=== PATIENT | male | born 1960 | race Caucasian/White ===

== ENCOUNTER 2021-10-23 11:58 | Inpatient (IN) | payer OTHER ==
[~2021-10-23] VITALS: Ht 185.4 cm; Wt 61.0 kg
[2021-10-23 12:48] LABS: BASOPHILS ABSOLUTE AUTO 0.06 K/mm3 (0.00-0.23); BASOPHILS PERCENT AUTO 1 % (0-2); EOSINOPHILS ABSOLUTE AUTO 0.04 K/mm3 (0.00-0.68); EOSINOPHILS PERCENT AUTO 1 % (0-6); Hematocrit 40.6 % (37.0-53.0); Hemoglobin 14.1 g/dL (13.5-17.5); IMMATURE GRAN ABSOLUTE AUTO 0.03 K/mm3 (0.00-0.10); IMMATURE GRAN PERCENT AUTO 1 % (0-1); LYMPHOCYTES ABSOLUTE AUTO 1.59 K/mm3 (0.84-5.20); LYMPHOCYTES PERCENT AUTO 34 % (21-46); MONOCYTES ABSOLUTE AUTO 0.39 K/mm3 (0.16-1.47); MONOCYTES PERCENT AUTO 8 % (4-13); Mean Corpuscular HGB 29.8 pg (26.0-34.0); Mean Corpuscular HGB Conc 34.7 g/dL (31.5-36.5); Mean Corpuscular Volume 86 fL (80-100); Mean Platelet Volume 10.5 fL (9.1-12.4); NEUTROPHILS ABSOLUTE AUTO 2.61 K/mm3 (1.96-9.15); NEUTROPHILS PERCENT AUTO 55 % (41-73); Platelet Count 187 K/mm3 (150-400); RDW Coefficient Variation 12.5 % (11.7-14.2); Red Blood Cell Count 4.73 M/mm3 (4.30-5.90); White Blood Cell Count 4.72 K/mm3 (4.00-11.30)
[2021-10-23 12:55] LABS: Source, Urine Clean Catch
[2021-10-23 13:16] LABS: Albumin, Blood 3.3 g/dL (3.4-5.0); Albumin/Globulin Ratio 0.7 (0.8-1.8); Bilirubin, Total 0.4 mg/dL (0.1-1.0); Bun/Creatinine Ratio 32.4 (12.0-20.0); Calcium, Blood 9.3 mg/dL (8.5-10.1); Creatinine, Blood 0.62 mg/dL (0.60-1.20); Globulin, Blood 4.5 g/dL (2.2-4.0); Potassium, Blood 4.9 mmol/L (3.5-5.5); Total Protein, Blood 7.8 g/dL (6.4-8.2)
[2021-10-23 13:22] LABS: Appearance, Urine Clear (Clear); Bilirubin, Urine Neg (Neg); Blood, Urine Neg (Neg); Color, Urine Yellow (P-Yellow); Glucose Qualitative, Urine 4+ (Neg); Ketones, Urine 1+ (Neg); Leukocyte Esterase, Urine Neg (Neg); Nitrite, Urine Neg (Neg); Protein, Urine Neg (Neg); Urobilinogen, Urine NORM (Normal)
[2021-10-23 15:36] LABS: Ketones, Urine Neg (Neg)
[2021-10-23 15:50] LABS: Bicarbonate Venous 25.4 mmol/L (24.0-30.0); pH Blood Venous 7.34 (7.34-7.37)
[2021-10-23 18:42] LABS: Albumin, Blood 2.8 g/dL (3.4-5.0); Anion Gap 7 mmol/L (6-16); Blood Urea Nitrogen 15 mg/dL (8-24); Bun/Creatinine Ratio 30.2 (12.0-20.0); CO2, Blood 27 mmol/L (21-32); Calcium, Blood 8.8 mg/dL (8.5-10.1); Chloride, Blood 98 mmol/L (98-108); Glomerular Filtration Rate 115 (60-); Glucose, Blood 462 mg/dL (70-99); Phosphorus, Blood 2.9 mg/dL (2.5-4.9); Potassium, Blood 4.2 mmol/L (3.5-5.5); Sodium, Blood 132 mmol/L (136-145)
--- NOTE | 2021-10-23 19:25 | NUR ---
PATIENT ARRIVED TO UNIT AT 1855. PATIENT ABLE TO TRANSFER SELF TO BED WITHOUT TROUBLE. PATIENT ALERT AND ORIENTED X 4, AFEBRILE. NO COMPLAINTS OF PAIN. PATIENT SATTING 90% AND GREATER ON RA. URINALS AT BEDSIDE. NS INFUSING AT 200 MLS/ HOUR. BLOOD SUGAR DOWN OVER 100 IN ONE HOUR INTERVAL. INSULIN DRIP POSTPONED AND BLOOD SUGAR WILL BE CHECKED AGAIN IN ANOTHER HOUR DO NOT WANT TO DECREASE TOO RAPIDLY. PATIENT ORIENTED TO UNIT, ROOM AND CALL SYSTEM. NO COMPLAINTS AT THIS TIME. BED LOW, CALL LIGHT IN REACH. REPORT GIVEN TO ASSUMING LEGAL DOCUMENT SPECIALIST NURSE.
[2021-10-23 23:14] LABS: Albumin, Blood 2.8 g/dL (3.4-5.0); Anion Gap 11 mmol/L (6-16); Blood Urea Nitrogen 13 mg/dL (8-24); Bun/Creatinine Ratio 24.8 (12.0-20.0); CO2, Blood 24 mmol/L (21-32); Calcium, Blood 8.6 mg/dL (8.5-10.1); Chloride, Blood 102 mmol/L (98-108); Creatinine, Blood 0.52 mg/dL (0.60-1.20); Glomerular Filtration Rate 113 (60-); Glucose, Blood 338 mg/dL (70-99); Phosphorus, Blood 2.4 mg/dL (2.5-4.9); Potassium, Blood 3.7 mmol/L (3.5-5.5); Sodium, Blood 137 mmol/L (136-145)
[2021-10-24 03:06] LABS: Albumin, Blood 2.7 g/dL (3.4-5.0); Albumin/Globulin Ratio 0.7 (0.8-1.8); Bilirubin, Direct 0.2 mg/dL (0.0-0.3); Bilirubin, Indirect 0.1 mg/dL (0.1-0.7); Bilirubin, Total 0.3 mg/dL (0.1-1.0); Bun/Creatinine Ratio 20.6 (12.0-20.0); Calcium, Blood 8.5 mg/dL (8.5-10.1); Creatinine, Blood 0.53 mg/dL (0.60-1.20); Globulin, Blood 3.8 g/dL (2.2-4.0); Magnesium, Blood 1.9 mg/dL (1.6-2.4); Phosphorus, Blood 2.6 mg/dL (2.5-4.9); Potassium, Blood 3.4 mmol/L (3.5-5.5); Total Protein, Blood 6.5 g/dL (6.4-8.2)
--- NOTE | 2021-10-24 07:13 | NUR ---
SUMMARY. PT RESTED IN BED THROUGHOUT SHIFT. A&O, ON ROOM AIR. IV ACCESS IN L&R ARMS. INSULIN GTT STARTED FOR HHS/HIGH BG, MAINTENANCE D5 1/2NS W/KCL STARTED AFTER BG BELOW 250. ORDERS OBTAINED THIS AM TO TRANSITION TO ACHS BG CHECKS AND SLIDING SCALE COVERAGE TID AC. NO OTHER ACUTE EVENTS, VS STABLE DURING SHIFT. SEE SHIFT ASSESSMENT FOR FURTHER DETAILS. REPORT GIVEN TO JAYLENE MARKHAM.
--- NOTE | 2021-10-24 15:05 | NUR ---
Spiritual Care Pt. Request Pt. is resting in bed but responded when I entered the room. Pt. is pleasant. Established rapport, and prayed for Pt. Pt. verbalized gratitude for the spiritual care visit.
--- NOTE | 2021-10-24 16:14 | NUR ---
TRANSFER PT TRANSFERRED TO RM 327. REPORT CALLED TO RASHI MONTELONGO. ALL BELONGINGS SENT WITH PT.
[2021-10-25 05:20] LABS: Bun/Creatinine Ratio 32.3 (12.0-20.0); Calcium, Blood 8.8 mg/dL (8.5-10.1); Creatinine, Blood 0.62 mg/dL (0.60-1.20); Potassium, Blood 3.8 mmol/L (3.5-5.5)
--- NOTE | 2021-10-25 06:10 | NUR ---
PER OFF-GOING RN, PATIENT LEFT THE UNIT FOR APPROXIMATELY 30 MINUTES, DURING WHICH HIS LOCATION WAS UNKNOWN. PT WAS TOLD THAT HE NEEDED TO ALERT STAFF WHEN LEAVING HIS ROOM. PT REPEATED THIS OVERNIGHT. UNIT STAFF (CHARGE NURSE) WAS ALERTED THAT PATIENT NOT ONLY LEFT THE UNIT, BUT LEFT HOSPITAL PREMESIS ON HIS SCOOTER WHICH IS PARKED NEARBY. WHEN PATIENT RETURNED, IT WAS EXPLAINED TO HIM THE HOSPITAL'S POLICY REGARDING REMAINING ON HIS ASSIGNED UNIT. PT VERBALIZED AN UNDERSTANDING. AT APPROXIMATELY 0400, PATIENT UTILIZED HIS CALL HANSEN TO VOICE HIS DISDAIN REGARDING HIS CARE, STATING "THIS PLACE IS LIKE PENITENTIARY"; "I HAVE TO BEG FOR FOOD, AND I'M ALREADY THIS"; "I'M OUT OF HERE IN THE MORNING". THIS RN APOLOGIZED REGARDING HIS FRUSTRATION AND ATTEMPTED TO EXPLAIN THAT THERE ARE DIETARY RESTRICTIONS THAT THE STAFF MUST ADHERE TO. PT CONTINUED TO VOICE FRUSTRATION. THE PT WAS MEDICATED AT BEDTIME WITH INSULIN, THIS RN FELT COMFORTABLE WITH PROVIDING A SNACK. NO OTHER ISSUES AROSE THROUGHOUT SHIFT.
--- NOTE | 2021-10-25 08:06 | NUR ---
PT C/O FEELING HUNGRY. UNDERWEIGHT, BG 350. MESSAGE LEFT FOR DR BRIDGES RE BLOOD GLUCOSE LEVEL AND ?IVF ORDER PT NOT RECEIVING IVF, SAID HE'S DRINKING WELL. CALLED [employer] WORKER MATT, SHE IS COMING TO SEE HIM TODAY. GIVEN SNACK AND INSULIN. PT RICA UP INSULIN AND GAVE OWN INJECTION WITH EDUCATION/SUPERVISION. HE SEEMS WILLING AND INTERESTED IN EDUCATION.
--- NOTE | 2021-10-25 09:25 | NUR ---
CONFIRMED WITH DR BRIDGES TO DISCONTINUE IVF. ORDER ENTERED IN [facility]
--- NOTE | 2021-10-25 11:37 | NUR ---
BLOOD GLUCOSE 405. DR BRIDGES CALLED AND NOTIFIED. TELEPHONE ORDER FOR NPH 10 UNITS X 1 NOW. ORDER REPEATED BACK AND ENTERED INTO [employer] (P). LUNCHES NOT HERE YET TO GIVE TID INSULIN DOSE LISPRO. TALKED WITH PHARMACIST.
--- NOTE | 2021-10-25 12:51 | NUR ---
PT SEEN BY INSERTING MACHINE OPERATOR THIS MORNING. I GAVE HIM A DIABETES EDUCATIONAL BOOKLET AND HE SAID HE'S BEEN READING SOME INFORMATION ON THE INTERNET. MR HARTMAN HAS BEEN DRAWING UP THE INSULIN DOSES AND INJECTING THE SYRINGES OF INSULIN HIMSELF WITH EDUCATION AND SUPERVISION. HE DID HAVE SOME DIFFICULTY SEEING THE LINES OF THE 50 UNIT SYRINGE TO DRAW UP 10 UNITS. WITH LUNCH I SHOWED HIM THE INSULIN PEN. HE SET THE DOSE AND I DEMONSTRATED HOW TO INJECT IT. WE DISCUSSED COMPLICATIONS OF DIABETES AND FOLLOW UP CARE WITH HIS PCP. HE IS CURRENTLY CHANGING TO A NEW PCP. MR HARTMAN IS INTERESTED AND INTERACTIVE WITH DIABETES EDUCATION. HE C/O NUMBNESS BLE STARTING BELOW HIS KNEES. HE SAID THAT HE EXAMINES HIS FEET DAILY FOR WOUNDS. ALSO C/O NUMBNESS TO BOTH HANDS. HE SAID HE HAS NOTICED VISION CHANGES OVER THE PAST MONTH, LESS CLEAR VISION, NOT EASY TO READ FINE PRINT. HE DENIES ANY PROBLEMS WITH URINATION. HE IS DRINKING FLUIDS AND EATING WELL, NO NAUSEA. HE IS AMBULATING INDEPENDENTLY OUTSIDE OF HIS ROOM.
--- NOTE | 2021-10-25 18:15 | NUR ---
SHIFT SUMMARY PLEASE SEE RN NOTE AT 1251 FOR DIABETIC EDUCATION NOTES. MR HARTMAN DID HIS OWN FINGERSTICK FOR BLOOD GLUCOSE BEFORE SUPPER. HE USED THE INSULIN PEN - PRIMED IT AND SET IT TO 10 UNITS WITH HIS SUPPER. HE GAVE THE DOSE OF INSULIN (SUPERVISED) AND VERBALISED AND DEMONSTRATED NEED TO HOLD THE PEN FOR THE COUNT OF 10 AFTER INJECTION. BLOOD GLUCOSE DOWN TO 241 BEFORE SUPPER WHICH WAS AN IMPROVEMENT OVER EARLIER IN THE DAY. MR HARTMAN HAS BEEN AMBULATING OUTSIDE OF HIS ROOM, SAID THAT HE IS GETTING FRESH AIR. HE LOOKS STEADY WALKING AND DENIES DIZZYNESS. HE SAID THAT HE WAS FEELING BETTER TODAY THAN HE HAS FOR A WHILE.
--- NOTE | 2021-10-25 23:17 | NUR ---
2104 PT LYING IN BED, DENIES ANY DISCOMFORT AT THIS TIME. BS 418. PT DENIES NEED FOR ANYTHING ELSE AT THIS TIME. NO APPARENT SIGNS OF DISTRESS. CALL LIGHT IS IN REACH.
--- NOTE | 2021-10-25 23:58 | NUR ---
PT LYING IN BED, EYES CLOSED, APPEARS TO BE RESTING. BREATHING IS EVEN, UNLABORED. NO APPARENT SIGNS OF DISTRESS. CALL LIGHT IS IN REACH.
--- NOTE | 2021-10-26 01:59 | NUR ---
PT LYING IN BED, EYES CLOSED, APPEARS TO BE RESTING. BREATHING IS EVEN, UNLABORED. NO APPARENT SIGNS OF DISTRESS. CALL LIGHT IS IN REACH.
--- NOTE | 2021-10-26 03:34 | NUR ---
PT LYING IN BED, EYES CLOSED, APPEARS TO BE RESTING. BREATHING IS EVEN, UNLABORED. NO APPARENT SIGNS OF DISTRESS. CALL LIGHT IS IN REACH.
--- NOTE | 2021-10-26 04:04 | NUR ---
PT IS AAO X 4, ON RA. BS WAS 418. PT DENIED ANY DISCOMFORT FOR THIS SHIFT. SCABS ON KNEES AND UE'S. LAST DOCUMENTED BM 10/22.
--- NOTE | 2021-10-26 05:48 | NUR ---
PT LYING IN BED, EYES CLOSED, APPEARS TO BE RESTING. BREATHING IS EVEN, UNLABORED. NO APPARENT SIGNS OF DISTRESS. CALL LIGHT IS IN REACH. NO OTHER CHANGES THIS SHIFT.
[2021-10-26] MEDS ORDERED: ACET325 PO (10:26)
[2021-10-26] MEDS ORDERED: BASAGLAR K100 UNIT/1 SC (10:27)
[2021-10-26] MEDS ORDERED: HUMALOG KW200 UNIT/2 SC (10:30)
[2021-10-26] MEDS ORDERED: Aspir 8181 MG PO (10:32)
--- NOTE | 2021-10-26 11:27 | NUR ---
PATIENT DISCHARGED TO HOME. TO PROVIDE A RX FOR A GLUCOMETER. WILL CALL [facility] TO LET KNOW WHEN RX IS HERE FOR HIM. PATIENT VERBALIZED UNDERSTANDING. PATIENT WILL ESTABLISH WITH A PCP AT [facility]. HE LIVES IN [place] AND PLANS ON RETURNING THERE. HIS RX FOR INSULIN WERE FAXED TO [facility] IN [place] PER HIS REQUEST.
[2021-10-29 11:10] LABS: HBSAG SCREEN Negative (Negative); HCV AB >11.0 (0.0-0.9); HCV LOG10 6.818 (.); HEP A AB, IGM Negative (Negative); HEP B CORE AB, IGM Negative (Negative); HEPATITIS C QUANTITATION 6570000 IU/mL (.)
== END 2021-10-26 13:57 | disposition home or self-care (01) | DRG 637 ==
LOC: ER 11:58 → ICUW 17:58 → ICUE 17:58 → MEDS 10-24 16:13
PROVIDERS: Emergency Medicine; Internal Medicine; Physician Assistant; ADMIT Internal Medicine
DX: E11.00 Type 2 diabetes mellitus with hyperosmolarity without nonketotic hyperglycemic-hyperosmolar coma (NKHHC) (principal); E43 Unspecified severe protein-calorie malnutrition; Z68.1 Body mass index [BMI] 19.9 or less, adult; E11.65 Type 2 diabetes mellitus with hyperglycemia; R79.89 Other specified abnormal findings of blood chemistry; R74.01 Elevation of levels of liver transaminase levels; K75.81 Nonalcoholic steatohepatitis (NASH); R29.6 Repeated falls; E87.6 Hypokalemia; Z85.118 Personal history of other malignant neoplasm of bronchus and lung; Z87.891 Personal history of nicotine dependence
CPT/HCPCS: 36415; 71045; 76705; 80048; 80053; 80069; 80074; 81003; 82248; 82803; 82947; 83036; 83605; 83735; 83930; 84100; 85025; 93005; 93010; 96360; 97161; 97165; 97530; 99285-25; A9270; J1650; J1815; J7030; J7120

== ENCOUNTER 2022-06-17 12:42 | Emergency (ER) | payer OTHER ==
[~2022-06-17] VITALS: Ht 185.4 cm; Wt 64.9 kg
[~2022-06-17 12:42] MED LIST: ACET325 PO; Aspir 8181 MG PO; BASAGLAR K100 UNIT/1 SC; HUMALOG KW200 UNIT/2 SC
[2022-06-17] MEDS ORDERED: NICODERM CQ1 EA25 TOP ×2 (12:52→13:29)
[2022-06-17] MEDS ORDERED: INSULIN LI100 UNIT/6 SC (13:28)
[2022-06-17] MEDS ORDERED: BASAGLAR K100 UNIT/8 SC (13:28)
[2022-06-17] MEDS ORDERED: Bactrim Ds Tab1 EACH PO (13:30)
[2022-06-17] MEDS ORDERED: BASAGLAR K100 UNIT/1 SC (13:33)
[2022-06-17] MEDS ORDERED: HUMALOG KW100 UNIT/1 SC (13:33)
== END 2022-06-17 13:45 | disposition home or self-care (01) ==
LOC: ER 12:42
DX: Z76.0 Encounter for issue of repeat prescription (principal); Z79.82 Long term (current) use of aspirin; Z79.4 Long term (current) use of insulin; Z87.891 Personal history of nicotine dependence
CPT/HCPCS: 82947; 99281

== ENCOUNTER 2022-09-30 13:28 | Emergency (ER) | payer OTHER ==
[~2022-09-30] VITALS: Ht 185.4 cm; Wt 62.6 kg
[~2022-09-30 13:28] MED LIST changes: +BASAGLAR K100 UNIT/8 SC; +Bactrim Ds Tab1 EACH PO; +CYCL10 PO; +HUMALOG KW100 UNIT/1 SC; +INSULIN LI100 UNIT/6 SC; +NICODERM CQ1 EA25 TOP
[2022-09-30 13:32] VITALS: BP 133/82
[2022-09-30] MEDS ORDERED: IBUP800 PO (14:16)
[2022-09-30] MEDS ORDERED: Robaxin750 MG PO (14:16)
[2022-09-30] MEDS ORDERED: METPRE4DP PO (14:53)
== END 2022-09-30 15:20 | disposition home or self-care (01) ==
LOC: ER 13:28
DX: M54.50 Low back pain, unspecified (principal); Z79.4 Long term (current) use of insulin; Z79.82 Long term (current) use of aspirin; Z79.2 Long term (current) use of antibiotics; Z79.899 Other long term (current) drug therapy; E11.9 Type 2 diabetes mellitus without complications; Z87.891 Personal history of nicotine dependence
CPT/HCPCS: 72070; 72100; 96372; 99283-25; A9270; J1885; J3301

== ENCOUNTER 2022-11-28 16:39 | Emergency (ER) | payer OTHER ==
[~2022-11-28] VITALS: Ht 185.4 cm; Wt 58.1 kg
[~2022-11-28 16:39] MED LIST changes: +IBUP800 PO; +METPRE4DP PO; +Robaxin750 MG PO
[2022-11-28 20:35] LABS: BASOPHILS ABSOLUTE AUTO 0.06 K/mm3 (0.00-0.23); BASOPHILS PERCENT AUTO 1 % (0-2); EOSINOPHILS ABSOLUTE AUTO 0.14 K/mm3 (0.00-0.68); EOSINOPHILS PERCENT AUTO 3 % (0-6); Hematocrit 40.3 % (37.0-53.0); Hemoglobin 13.4 g/dL (13.5-17.5); IMMATURE GRAN ABSOLUTE AUTO 0.05 K/mm3 (0.00-0.10); IMMATURE GRAN PERCENT AUTO 1 % (0-1); LYMPHOCYTES ABSOLUTE AUTO 1.76 K/mm3 (0.84-5.20); LYMPHOCYTES PERCENT AUTO 37 % (21-46); MONOCYTES ABSOLUTE AUTO 0.34 K/mm3 (0.16-1.47); MONOCYTES PERCENT AUTO 7 % (4-13); Mean Corpuscular HGB Conc 33.3 g/dL (31.5-36.5); Mean Corpuscular Volume 87 fL (80-100); Mean Platelet Volume 10.7 fL (9.1-12.4); NEUTROPHILS ABSOLUTE AUTO 2.38 K/mm3 (1.96-9.15); NEUTROPHILS PERCENT AUTO 50 % (41-73); Platelet Count 225 K/mm3 (150-400); RDW Coefficient Variation 15.8 % (11.7-14.2); RDW Standard Deviation 49.6 fL (35.1-46.3); Red Blood Cell Count 4.62 M/mm3 (4.30-5.90); White Blood Cell Count 4.73 K/mm3 (4.00-11.30)
[2022-11-28 20:45] LABS: Albumin, Blood 2.8 g/dL (3.4-5.0); Albumin/Globulin Ratio 0.5 (0.8-1.8); Bilirubin, Total 0.3 mg/dL (0.1-1.0); Bun/Creatinine Ratio 25.6 (12.0-20.0); Calcium, Blood 8.7 mg/dL (8.5-10.1); Creatinine, Blood 0.63 mg/dL (0.60-1.20); Globulin, Blood 5.8 g/dL (2.2-4.0); Magnesium, Blood 1.8 mg/dL (1.6-2.4); Phosphorus, Blood 3.1 mg/dL (2.5-4.9); Total Protein, Blood 8.6 g/dL (6.4-8.2)
[2022-11-28 21:30] VITALS: BP 147/93
[2022-11-28] MEDS ORDERED: ARTIFICIAL TEAR15 M2 OP (23:08)
[2022-11-28] MEDS ORDERED: CEPH500 PO (23:08)
== END 2022-11-28 23:24 | disposition home or self-care (01) ==
LOC: ER 16:39
PROVIDERS: Emergency Medicine
DX: H53.8 Other visual disturbances (principal); Z79.4 Long term (current) use of insulin; Z79.899 Other long term (current) drug therapy; E11.9 Type 2 diabetes mellitus without complications; Z87.891 Personal history of nicotine dependence
CPT/HCPCS: 70450; 70496; 80053; 83735; 84100; 85025; 96365-59; 99284-25; J0696; Q9967

== ENCOUNTER 2023-09-06 12:36 | Emergency (ER) | payer OTHER ==
[~2023-09-06] VITALS: Ht 185.4 cm; Wt 65.8 kg
[~2023-09-06 12:36] MED LIST changes: +ARTIFICIAL TEAR15 M2 OP; +CEPH500 PO; +Cefadroxil500 MG PO; +FAMO20 PO; -INSULIN LI100 UNIT/6 SC; +OXYC5 PO
[2023-09-06] MEDS ORDERED: INSULIN LI100 UNIT/6 SC (15:22)
[2023-09-06 16:30] LABS: BASOPHILS ABSOLUTE AUTO 0.05 K/mm3 (0.00-0.23); BASOPHILS PERCENT AUTO 1 % (0-2); EOSINOPHILS ABSOLUTE AUTO 0.16 K/mm3 (0.00-0.68); EOSINOPHILS PERCENT AUTO 3 % (0-6); Hematocrit 47.5 % (37.0-53.0); IMMATURE GRAN ABSOLUTE AUTO 0.03 K/mm3 (0.00-0.10); IMMATURE GRAN PERCENT AUTO 1 % (0-1); LYMPHOCYTES ABSOLUTE AUTO 1.63 K/mm3 (0.84-5.20); LYMPHOCYTES PERCENT AUTO 29 % (21-46); MONOCYTES PERCENT AUTO 7 % (4-13); Mean Corpuscular HGB 29.1 pg (26.0-34.0); Mean Corpuscular HGB Conc 33.7 g/dL (31.5-36.5); Mean Corpuscular Volume 86 fL (80-100); Mean Platelet Volume 9.6 fL (9.1-12.4); NEUTROPHILS PERCENT AUTO 59 % (41-73); Platelet Count 181 K/mm3 (150-400); RDW Coefficient Variation 13.6 % (11.7-14.2); White Blood Cell Count 5.57 K/mm3 (4.00-11.30)
[2023-09-06 16:47] LABS: Albumin, Blood 3.7 g/dL (3.4-5.0); Albumin/Globulin Ratio 0.6 (0.8-1.8); Bilirubin, Total 0.3 mg/dL (0.1-1.0); Bun/Creatinine Ratio 17.2 (12.0-20.0); Calcium, Blood 9.4 mg/dL (8.5-10.1); Creatinine, Blood 0.87 mg/dL (0.60-1.20); Globulin, Blood 6.1 g/dL (2.2-4.0); Potassium, Blood 4.4 mmol/L (3.5-5.5); Total Protein, Blood 9.8 g/dL (6.4-8.2)
[2023-09-06] MEDS ORDERED: CefTRIAXone Sodium 1,000 MG in NS 100 ML IV ONE (17:00)
[2023-09-06] MEDS ORDERED: Nicoderm Cq1 EAC1 TOP (17:22)
[2023-09-06] MEDS ORDERED: Cefadroxil500 MG PO (17:22)
[2023-09-06 18:00] VITALS: BP 146/86
== END 2023-09-06 18:31 | disposition home or self-care (01) ==
LOC: ER 12:36
PROVIDERS: Physician Assistant
DX: L03.115 Cellulitis of right lower limb (principal); E11.65 Type 2 diabetes mellitus with hyperglycemia; Z79.4 Long term (current) use of insulin; Z87.891 Personal history of nicotine dependence
CPT/HCPCS: 80053; 85025; 96365; 99283-25; J0696